=== PATIENT | male | born 1965 | race American Indian/Alaskan Native ===

== ENCOUNTER 2018-12-12 12:48 | Observation (INO) | payer OTHER ==
--- NOTE | 2018-12-12 13:09 | Event Note ---
ED Screening Note Date of service: 12/12/18 Time: 13:07 ED Screening Note: Pt complains of needing dialysis x today. states last dialysis was Saturday-states some difficulty with placement with his dialysis clinic This initial assessment/diagnostic orders/clinical plan/treatment(s) is/are subject to change based on patients health status, clinical progression and re- assessment by fellow clinical providers in the ED. Further treatment and workup at subsequent clinical providers discretion. Patient/guardian urged not to elope from the ED as their condition may be serious if not clinically assessed and managed. Initial orders include: BMP CBC
[2018-12-12 14:39] LABS: Basophils % (Auto) 0.5 % (0.0-1.8); Eosinophils # (Auto) 0.2 K/mm3 (0.0-0.4); Eosinophils % (Auto) 2.1 % (0.0-4.3); Hematocrit 36.4 % (35.5-45.6); Lymphocytes # (Auto) 1.9 K/mm3 (1.2-5.4); Lymphocytes % (Auto) 20.3 % (13.4-35.0); Mean Corpuscular HGB Conc 33 % (32-34); Mean Corpuscular Volume 93 fl (84-94); Monocytes # (Auto) 0.4 K/mm3 (0.0-0.8); Monocytes % (Auto) 4.4 % (0.0-7.3); Platelet Count 180 K/mm3 (140-440); Red Blood Count 3.91 M/mm3 (3.65-5.03); Red Cell Distribution Width 14.5 % (13.2-15.2)
[2018-12-12 15:05] LABS: Calcium 8.8 mg/dL (8.4-10.2)
--- NOTE | 2018-12-12 16:50 | Emergency Department Report ---
ED General Adult HPI - General Chief complaint: Medical Clearance Stated complaint: NEEDS DIALYSIS Time Seen by Provider: 12/12/18 16:49 Source: patient Mode of arrival: Ambulatory Limitations: No Limitations - History of Present Illness Initial comments: 53-year-old male with a history of end-stage renal disease presents after being referred from an outpatient dialysis center presenting stating that he needs dialysis. Patient is from [place] and states that he called [facility] dialysis and was told to come to the emergency department for evaluation. Patient denies any acute shortness of breath at the current time. Patient denies any chest pain. Patient denies any vomiting. Patient states his last dialysis was in [place] on Saturday. Patient denies any fever. - Related Data Home Medications Medication Instructions Recorded Confirmed Last Taken No Known Home Medications [No 12/12/18 12/12/18 Unknown Reported Home Medications] Allergies Allergy/AdvReac Type Severity Reaction Status Date / Time No Known Allergies Allergy Verified 12/12/18 13:07 ED Review of Systems ROS: Stated complaint: NEEDS DIALYSIS Other details as noted in HPI Constitutional: denies: chills, fever Eyes: denies: eye pain, eye discharge, vision change ENT: denies: ear pain, throat pain Respiratory: denies: cough, shortness of breath, wheezing Cardiovascular: denies: chest pain, palpitations Endocrine: no symptoms reported Gastrointestinal: denies: abdominal pain, nausea, diarrhea Genitourinary: denies: urgency, dysuria Musculoskeletal: denies: back pain, joint swelling, arthralgia Skin: denies: rash, lesions Neurological: denies: headache, weakness, paresthesias Psychiatric: denies: anxiety, depression Hematological/Lymphatic: denies: easy bleeding, easy bruising ED Past Medical Hx - Social History Smoking Status: Never Smoker Substance Use Type: None - Medications Home Medications: Home Medications Medication Instructions Recorded Confirmed Last Taken Type No Known Home Medications [No 12/12/18 12/12/18 Unknown History Reported Home Medications] ED Physical Exam - General Limitations: No Limitations General appearance: alert, in no apparent distress, other (comfortable) - Head Head exam: Present: atraumatic, normocephalic - Eye Eye exam: Present: normal appearance - ENT ENT exam: Present: mucous membranes moist - Neck Neck exam: Present: normal inspection - Respiratory Respiratory exam: Present: normal lung sounds bilaterally. Absent: respiratory distress - Cardiovascular Cardiovascular Exam: Present: regular rate, normal rhythm, other (asucltated thrill present). Absent: systolic murmur, diastolic murmur, rubs, gallop - GI/Abdominal GI/Abdominal exam: Present: soft, normal bowel sounds - Rectal Rectal exam: Present: deferred - Extremities Exam Extremities exam: Present: normal inspection - Back Exam Back exam: Present: normal inspection - Neurological Exam Neurological exam: Present: alert, oriented X3 - Psychiatric Psychiatric exam: Present: normal affect, normal mood - Skin Skin exam: Present: warm, dry, intact, normal color. Absent: rash ED Course Vital Signs 12/12/18 12/12/18 12/12/18 12:53 13:06 17:16 Temperature 98.0 F 98.0 F Pulse Rate 89 89 81 Respiratory 16 16 10 L Rate Blood Pressure 164/92 164/92 Blood Pressure [Right] O2 Sat by Pulse 95 96 97 Oximetry 12/12/18 12/12/18 12/12/18 17:19 17:31 17:45 Temperature 98.2 F Pulse Rate 81 83 81 Respiratory 18 11 L 25 H Rate Blood Pressure 133/95 133/95 Blood Pressure 135/95 [Right] O2 Sat by Pulse 98 98 97 Oximetry 12/12/18 12/12/18 12/12/18 18:01 18:15 18:31 Temperature Pulse Rate Respiratory 13 13 18 Rate Blood Pressure 143/90 143/90 143/90 Blood Pressure [Right] O2 Sat by Pulse 95 95 96 Oximetry 12/12/18 12/12/18 12/12/18 18:45 19:01 19:15 Temperature Pulse Rate Respiratory 29 H 25 H 15 Rate Blood Pressure 143/90 110/63 110/63 Blood Pressure [Right] O2 Sat by Pulse 94 94 96 Oximetry 12/12/18 19:31 Temperature Pulse Rate Respiratory 13 Rate Blood Pressure 110/63 Blood Pressure [Right] O2 Sat by Pulse 96 Oximetry ED Medical Decision Making - Lab Data Result diagrams: 12/12/18 14:25 12/12/18 14:25 - Medical Decision Making Patient case discussed with Dr. Reagan with nephrology who attempted to arrange outpatient dialysis for the patient was as he is from [place] this was not possible. Patient to be admitted to the hospitalist service so patient received dialysis in the morning. Patient has a normal potassium and is saturating fine while here in emergency department. - Differential Diagnosis hyperkalemia; anemia; dehydration; Critical care attestation.: If time is entered above; I have spent that time in minutes in the direct care of this critically ill patient, excluding procedure time. ED Disposition Clinical Impression: ESRD (end stage renal disease) Obesity Qualifiers: Body mass index: BMI 45.0-49.9 Disposition: OP ADMIT IP TO THIS HOSP Is pt being admited?: Yes Does the pt Need Aspirin: No Condition: Stable Time of Disposition: 21:18
[2018-12-12] MEDS ORDERED: SODIUM CHLORIDE FLUSH SYRINGE 10 ML IV PRN (18:42)
[2018-12-12] MEDS ORDERED: ZOFRAN IV PRN (18:42)
[2018-12-12] MEDS ORDERED: TYLENOL PO PRN (18:42)
--- NOTE | 2018-12-12 18:44 | History and Physical Report ---
History of Present Illness Chief complaint: I need dialysis History of present illness: 53 YO Male with ESRD on HD(M,W,F) presents to ED for evaluation. Pt states that he was last dialyzed on Saturday and has missed 2 dialysis sessions. Pt was unable to undergo routine dailysis at his outpatient center due to a scheduling mixup. Pt transported to [facility] via private vehicle. Pt seen and evaluated in ED and found to have ESRD, Acidosis. Nephrology consulted in ED. Pt admitted and to medical floor. Pt denies fever, chills, CP, palpitations, NVD, Trauma, BRBPR, Productive cough, or recent ill contacts. No prior admission for review. All listed medication reconciled at time of admission. Past History Past Medical History: other (see hpi) Past Surgical History: Other (dialysis access) Social history: , lives with family Family history: hypertension Medications and Allergies Allergies Allergy/AdvReac Type Severity Reaction Status Date / Time No Known Allergies Allergy Verified 12/12/18 13:07 Home Medications Medication Instructions Recorded Confirmed Last Taken Type No Known Home Medications [No 12/12/18 12/12/18 Unknown History Reported Home Medications] Review of Systems Constitutional: no weight loss, no weight gain, no fever, no chills Ears, nose, mouth and throat: no ear pain, no ear discharge, no tinnitis, no nose pain, no nasal congestion Cardiovascular: no chest pain, no orthopnea, no palpitations, no edema Respiratory: no cough, no cough with sputum, no excessive sputum, no hemoptysis, no shortness of breath, no dyspnea on exertion Gastrointestinal: no abdominal pain, no nausea, no vomiting, no constipation, no hematemesis, no coffee ground emesis Genitourinary Male: no dysuria, no hematuria, no flank pain, no discharge, no urinary frequency, no urinary hesitancy Rectal: no pain, no incontinence, no bleeding Musculoskeletal: no neck stiffness, no neck pain, no shooting arm pain, no arm numbness/tingling, no shooting leg pain Integumentary: no rash, no pruritis, no redness, no sores, no wounds Neurological: no head injury, no transient paralysis, no paralysis, no numbness, no tingling, no seizures, no tremors Psychiatric: no anxiety, no memory loss, no sleep disturbances, no change in appetite Endocrine: no cold intolerance, no heat intolerance, no polyphagia, no excessive thirst, no excessive sweating Hematologic/Lymphatic: no easy bruising, no easy bleeding, no lymphadenopathy Allergic/Immunologic: no urticaria, no allergic rhinitis, no persistent infections Exam - Constitutional Vitals: Temp Pulse Resp BP Pulse Ox 98.2 F 81 18 135/95 100 12/12/18 17:19 12/12/18 17:19 12/12/18 17:19 12/12/18 17:19 12/12/18 17:19 General appearance: Present: no acute distress, well-nourished - EENT Eyes: Present: PERRL ENT: hearing intact, clear oral mucosa - Neck Neck: Present: supple, normal ROM - Respiratory Respiratory effort: normal Respiratory: bilateral: CTA - Cardiovascular Heart Sounds: Present: S1 & S2. Absent: rub, click - Extremities Extremities: pulses symmetrical, No edema Peripheral Pulses: within normal limits - Abdominal General gastrointestinal: Present: soft, non-tender, non-distended, normal bowel sounds Male genitourinary: Present: normal - Integumentary Integumentary: Present: clear, warm, dry - Musculoskeletal Musculoskeletal: gait normal, strength equal bilaterally - Psychiatric Psychiatric: appropriate mood/affect, intact judgment & insight - Neurologic Neurologic: CNII-XII intact, moves all extremities Results - Labs CBC & Chem 7: 12/12/18 14:25 12/12/18 14:25 Labs: Abnormal lab results 12/12/18 12/12/18 Range/Units 14:25 14:25 Seg Neutrophils % 72.7 H (40.0-70.0) % Carbon Dioxide 21 L (22-30) mmol/L BUN 92 H (9-20) mg/dL Creatinine 17.9 H (0.8-1.5) mg/dL Glucose 115 H (75-100) mg/dL Assessment and Plan - Patient Problems (1) ESRD (end stage renal disease) Current Visit: Yes Status: Acute Plan to address problem: Nephrology consulted in ED, potassium level, No EKG changes, dialysis as per renal team, strict I/O, daily weight, avoid nephrotoxic agents. (2) Acidosis Current Visit: Yes Status: Acute Plan to address problem: repeat bmp, dialysis as per renal team. (3) Obesity Current Visit: Yes Status: Acute Qualifiers: Body mass index: BMI 45.0-49.9 Plan to address problem: Balanced diet, increased physical activity at discharge (4) DVT prophylaxis Current Visit: Yes Status: Acute Plan to address problem: SCD to BLE while in bed, Pt ambulatory
[2018-12-12] MEDS: SODIUM CHLORIDE FLUSH SYRINGE 10 ML IV SCH (22:09)
[2018-12-13 05:40] LABS: Calcium 8.2 mg/dL (8.4-10.2)
--- NOTE | 2018-12-13 08:11 | Progress Note ---
Assessment and Plan Assessment and plan: 53 YO Male with ESRD on HD(M,W,F) presents to ED for evaluation. Pt states that he was last dialyzed on Saturday and has missed 2 dialysis sessions. He is visiting from [place] and had tried to set up outpatient dialysis for his visit here. And there was some issue with scheduling. Past History Past Medical History: other (see hpi) ESRD (end stage renal disease) with uremia and metabolic acidosis Dialysis per nephrology Obesity Preventative health counseling performed for 17 minutes DVT prophylaxis SCD to BLE while in bed, Pt ambulatory History Interval history: Review of systems Constitutional: No fevers, no malaise, no joint pains CVS: No chest pain, no orthopnea, no pedal edema GI: No abdominal pain, no diarrhea, no vomiting, no constipation Respiratory: No shortness of breath, no wheezing, no coughing Hospitalist Physical - Physical exam Narrative exam: General.: Appears well, no distress, nontoxic, obese HEENT: Moist mucous membranes, extraocular muscles intact, no lymphadenopathy Neck: supple Cardiac: S1-S2 heard Lungs: clear to auscultation bilaterally Abdomen: soft , nontender, nondistended, bowel sounds positive Extremities: no edema clubbing or cyanosis Skin: no rash or lesions Neurologic: no gross focal deficits Psych: calm, and cooperative - Constitutional Vitals: Temp Pulse Resp BP Pulse Ox 98.0 F 65 26 H 97/59 89 12/13/18 05:35 12/13/18 05:35 12/13/18 05:35 12/13/18 05:35 12/13/18 05:35 General appearance: Present: no acute distress, well-nourished Results - Labs CBC & Chem 7: 12/12/18 14:25 12/13/18 04:45 Labs: Laboratory Last Values WBC 9.6 K/mm3 (4.5-11.0) 12/12/18 14:25 RBC 3.91 M/mm3 (3.65-5.03) 12/12/18 14:25 Hgb 12.0 gm/dl (11.8-15.2) 12/12/18 14:25 Hct 36.4 % (35.5-45.6) 12/12/18 14:25 MCV 93 fl (84-94) 12/12/18 14:25 MCH 31 pg (28-32) 12/12/18 14:25 MCHC 33 % (32-34) 12/12/18 14:25 RDW 14.5 % (13.2-15.2) 12/12/18 14:25 Plt Count 180 K/mm3 (140-440) 12/12/18 14:25 Lymph % (Auto) 20.3 % (13.4-35.0) 12/12/18 14:25 Stephens % (Auto) 4.4 % (0.0-7.3) 12/12/18 14:25 Eos % (Auto) 2.1 % (0.0-4.3) 12/12/18 14:25 Baso % (Auto) 0.5 % (0.0-1.8) 12/12/18 14:25 Lymph # 1.9 K/mm3 (1.2-5.4) 12/12/18 14:25 Stephens # 0.4 K/mm3 (0.0-0.8) 12/12/18 14:25 Eos # 0.2 K/mm3 (0.0-0.4) 12/12/18 14:25 Baso # 0.0 K/mm3 (0.0-0.1) 12/12/18 14:25 Seg Neutrophils % 72.7 % (40.0-70.0) H 12/12/18 14:25 Seg Neutrophils # 7.0 K/mm3 (1.8-7.7) 12/12/18 14:25 Sodium 140 mmol/L (137-145) 12/13/18 04:45 Potassium 5.2 mmol/L (3.6-5.0) H 12/13/18 04:45 Chloride 97.4 mmol/L (98-107) L 12/13/18 04:45 Carbon Dioxide 20 mmol/L (22-30) L 12/13/18 04:45 Anion Gap 28 mmol/L 12/13/18 04:45 BUN 97 mg/dL (9-20) H 12/13/18 04:45 Creatinine 18.8 mg/dL (0.8-1.5) H 12/13/18 04:45 Estimated GFR 3 ml/min 12/13/18 04:45 BUN/Creatinine Ratio 5 % 12/13/18 04:45 Glucose 112 mg/dL (75-100) H 12/13/18 04:45 Calcium 8.2 mg/dL (8.4-10.2) L 12/13/18 04:45 Active Medications - Current Medications Current Medications: Generic Name Dose Route Start Last Admin Trade Name Freq PRN Reason Stop Dose Admin Acetaminophen 650 mg 12/12/18 18:42 Tylenol PO Q4H PRN Pain MILD(1-3)/Fever >100.5/WATKINS Ondansetron HCl 4 mg 12/12/18 18:42 Zofran IV Q8H PRN Nausea And Vomiting Sodium Chloride 10 ml 12/12/18 22:00 12/12/18 22:09 Sodium Chloride Flush Syringe 10 Ml IV 10 ml BID DAX Administration Sodium Chloride 10 ml 12/12/18 18:42 Sodium Chloride Flush Syringe 10 Ml IV PRN PRN LINE FLUSH
[2018-12-13] MEDS ORDERED: NACL 0.9% 100 ML IV PRN (11:15)
--- NOTE | 2018-12-13 11:16 | Consultation ---
History of Present Illness - History of Present Illness end-stage renal disease: Patient has recently relocated from [place], hemodia lysis will be ordered Given that he has significantly elevated BUN and creatinine and he will need one treatment today and another treatment tomorrow We will need to discuss with [facility] about acceptance, patient has still not been accepted there by the medical associate Recommend keeping the patient here till Saturday Continue to follow and make recommendation from renal standpoint Past History Past Medical History: other (see hpi) Past Surgical History: Other (dialysis access) Social history: , lives with family Family history: hypertension Medications and Allergies Allergies Allergy/AdvReac Type Severity Reaction Status Date / Time No Known Allergies Allergy Verified 12/12/18 13:07 Home Medications Medication Instructions Recorded Confirmed Last Taken Type No Known Home Medications [No 12/12/18 12/12/18 Unknown History Reported Home Medications] Active Meds: Active Medications Acetaminophen (Tylenol) 650 mg PO Q4H PRN PRN Reason: Pain MILD(1-3)/Fever >100.5/WATKINS Ondansetron HCl (Zofran) 4 mg IV Q8H PRN PRN Reason: Nausea And Vomiting Sodium Chloride (Sodium Chloride Flush Syringe 10 Ml) 10 ml IV BID DAX Last Admin: 12/12/18 22:09 Dose: 10 ml Documented by: Sodium Chloride (Sodium Chloride Flush Syringe 10 Ml) 10 ml IV PRN PRN PRN Reason: LINE FLUSH Exam - Vital Signs Vital signs: Vital Signs Temp Pulse Resp BP Pulse Ox 98.0 F 89 16 164/92 95 12/12/18 12:53 12/12/18 12:53 12/12/18 12:53 12/12/18 12:53 12/12/18 12:53 Results - Lab Results 12/12/18 14:25 12/13/18 04:45 Most recent lab results Calcium 8.2 mg/dL (8.4-10.2) L 12/13/18 04:45
[2018-12-13] MEDS: SODIUM CHLORIDE FLUSH SYRINGE 10 ML IV SCH (14:00)
[2018-12-13 17:34] LABS: Hepatitis B Surface Antigen Non-Reactive (Negative); Hepatitis C Virus Antibody Non-Reactive (NonReactive)
[2018-12-13 20:20] VITALS: BP 173/87
--- NOTE | 2018-12-13 22:21 | Event Note ---
Date: 12/13/18 I WAS CALLED BY NURSE ON DUTY AT ABOUT 9.30 PM WHO SAID THAT PATIENT WANTS TO LEAVE AMA. I SPOKE WITH PATIENT AT ABOUT 9.43PM AND HE SAID THAT HE DOES NOT WANT TO STAY BECAUSE HE USUALLY GOES HOME AFTER DIALYSIS. PATIENT'S MEDICAL RECORD WAS REVIEWED AND H&P, PROGRESS NOTE BY THE HOSPITALIST ,CONSULTATION BY THE WOODENWARE ASSEMBLER AND DISCUSSION WITH THE NURSE HANDLING THE CASE DID NOT REVEAL ANY INSTRUCTION TO DISCHARGE PATIENT THIS NIGHT AFTER DIALYSIS. PATIENT WAS ADVISED TO WAIT TILL MORNING FOR COMPLETION OF HIS EVALUATION BUT HE REFUSED AND LEFT AGAINST MEDICAL ADVISE.
--- NOTE | 2018-12-14 10:13 | Discharge Summary ---
Providers - Providers Date of Admission: 12/12/18 18:42 Attending physician: CAMI SILVERMAN MD 12/12/18 20:22 Consult to Physician [CONS] Routine Comment: Consulting Provider: JULIO PATTON Physician Instructions: Reason For Exam: ESRD Primary care physician: HELENE BLAND MD Hospitalization Condition: Stable Hospital course: 53 YO Male with ESRD on HD(M,W,F) presents to ED for evaluation. Pt states that he was last dialyzed on Saturday and has missed 2 dialysis sessions. He is visiting from [place] and had tried to set up outpatient dialysis for his visit here. And there was some issue with scheduling. Past History Past Medical History: other (see hpi) ESRD (end stage renal disease) with uremia and metabolic acidosis He received dialysis Obesity Preventative health counseling performed for 17 minutes DVT prophylaxis SCD to BLE while in bed, Pt ambulatory Patient received 1 session of dialysis after which she became very upset and stated that he wanted to leave. He refused to sign AMA papers and walked out of the hospital. Disposition: DC-07 LEFT AGAINST MED ADVICE Core Measure Documentation - Palliative Care Palliative Care/ Comfort Measures: Not Applicable - Core Measures Any of the following diagnoses?: none Exam - Constitutional Vitals: Temp Pulse Resp BP Pulse Ox 18 F L 82 20 173/87 94 12/13/18 19:20 12/13/18 19:20 12/13/18 19:20 12/13/18 19:20 12/13/18 11:35 Peripheral Pulses: within normal limits - Neurologic Neurologic: CNII-XII intact, moves all extremities Plan Follow up with: HELENE BLAND MD [Primary Care Provider] - 7 Days
== END 2018-12-13 21:50 | disposition left against medical advice (07) ==
LOC: ED 12:48 → 3A 18:42
PROVIDERS: ADMIT Internal Medicine; ATTEND Internal Medicine
DX: N18.6 End stage renal disease (principal); E87.2 Acidosis; E66.9 Obesity, unspecified; Z99.2 Dependence on renal dialysis
CPT/HCPCS: 36415; 80048; 80074; 85025; 94760; 99284; G0378